=== PATIENT | female | born 1975 | race Caucasian/White ===

== ENCOUNTER 2017-07-14 00:45 | Inpatient (IN) | payer OTHER ==
[~2017-07-14] VITALS: Ht 154.9 cm; Wt 72.8 kg
[2017-07-14] MEDS ORDERED: CITA40TA12 PO (02:54)
[2017-07-14 02:58] VITALS: BP 134/87; PULSE 77; TEMP 37.1; O2SAT 99; Ht 154.9 cm; Wt 72.8 kg
[2017-07-14] MEDS ORDERED: PIPERACILL/TAZOBAC CONSULT ACTIVE PRN (04:00)
[2017-07-14] MEDS ORDERED: ONDANSETRON INJ 2 MG/ML 2 ML VIAL IV PRN (04:00)
[2017-07-14] MEDS ORDERED: MAGNESIUM HYDROXIDE SUSP 30 ML UDC PO PRN (04:00)
[2017-07-14] MEDS ORDERED: ALUMINUM/MAGNESIUM/SIMETH (MAALOX MAX) 30 ML UDC PO PRN (04:00)
[2017-07-14] MEDS ORDERED: POLYETHYLENE (MIRALAX) 17 GM PACK PO PRN (04:00)
[2017-07-14] MEDS ORDERED: ACETAMINOPHEN 325 MG TAB PO PRN (04:00)
[2017-07-14] MEDS ORDERED: ZOLPIDEM TARTRATE 5 MG TAB PO PRN (04:00)
--- NOTE | 2017-07-14 04:02 | History and Physical ---
History & Physical Date & Time of Service: July 14, 2017 at 03:51 Chief Complaint: Rt Hand Celluliltis From Cat Bite Primary Care Physician: Fabián Wheeler D.O. History of Present Illness Source: patient 41F with a PMHx of HTN, migraines and depression presents as a transfer from [facility] for a cat bite in the right and left hand. The patient's cc is primary the right hand. The cat bite happened in the afternoon on 07/13/2017 when she accidentally closed a washing machine door onto a cats tail. The cat then bit the dorsum of patient's right and left hand. The patient reports pain and swelling in the right hand and minimal pain and swelling in the left hand. Pt denies fevers but states that the swelling is getting worse. Per chart review the patient did receive a TDAP shot at [place]. ROS: No other complaints. Past Medical/Surgical History Medical Problems: (1) Cat bite of hand Family History Noncontributory Social History Smoking Status: Former Smoker Smokeless Tobacco Use: No Alcohol Use: none Drug Use: none Immunizations History of Influenza Vaccine: Unknown History of Tetanus Vaccine?: Unknown History of Pneumococcal: Unknown History of Hepatitis B Vaccine: Unknown Allergies Coded Allergies: No Known Allergies (Unverified , 07/14/17) Home Medications Scheduled Citalopram Hydrobromide (Celexa), 1 TAB PO DAILY Review of Systems Constitutional: No fever, No chills Respiratory: No cough, No sputum, No shortness of breath Cardiovascular: No chest pain Abdomen: No pain, No nausea, No vomiting, No diarrhea Musculoskeletal: No joint pain Genitourinary - Female: No dysuria Neurologic: No memory loss Integumentary: No rash Physical Exam Vital Signs Date Time Temp Pulse Resp B/P (MAP) Pulse Ox O2 Delivery O2 Flow Rate FiO2 07/14/17 03:18 Room Air 07/14/17 02:58 37.1 77 16 134/87 99 Room Air General Appearance: WD/WN, no apparent distress Head: normocephalic, atraumatic Eyes: normal inspection, PERRL Respiratory/Chest: chest non-tender, lungs clear, normal breath sounds, no respiratory distress, no accessory muscle use Cardiovascular: regular rate, rhythm, no edema, no gallop, no JVD, no murmur, normal peripheral pulses Abdomen/GI: normal bowel sounds, non tender, soft, no organomegaly, no pulsatile mass Back: normal inspection, no CVA tenderness Extremities/Musculoskelatal: + pertinent finding (The right hand looks markedly swollen. Patient has significant pain on passive and active flexion of the 3rd, 4th and 5th digit on the right hand. Pt is neurovascularly intact. 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 ) Skin: + pertinent finding (patient has 4-5 puncture huston on the dorsum of the right hand and 2-3 pucture huston on the dorsum of the left hand. There is no definite area of erythema. ) Impression Assessment and Plan 41F p/w cat bite on both hands. Right worse than Left. Cat Bite Pt received Unasyn in [place], will expand coverage to Zosyn. Consult Dr. Vaughn regarding possible involving of the tendon sheeth. Migraines Continue daily propranolol Depression Continue daily celexa. HTN Continue daily Lisinopril. Diet: NPO + IVF, in case possible debridement is needed. DVT proph: SCDs FULL CODE. Attending addendum: I have physically seen this patient, have supervised the medical residents activities, and agree with the H&P unless as otherwise noted. Assessment and Plan: Right hand cellulitis/cat bite-- Admit to nonmonitored bed. Given a single dose of Unasyn IV in the ED at [facility]. Start on Zosyn IV. Place on IV fluids N.p.o. after midnight Consult Dr. Vaughn from [facility]. Hypertension-- Continue lisinopril with hold parameters Depression-- Continue Celexa Advanced Directives Existing Advance Directive: No Existing Living Will: No Existing Power of Solar Tech: No Resuscitation Status VTE Prophylaxis Will order VTE Prophylaxis: Yes Social Service Consult None Apply Resident Involvement: Resident Care Provided Care Provided: Adult Hospital Medicine
[2017-07-14] MEDS: NSS + 20MEQ KCL 1000ML 1,000 ML IV SCH ×2 (04:44→13:17)
[2017-07-14] MEDS ORDERED: IV FLUIDS COMPLETED PRN (05:00)
[2017-07-14] MEDS: PIPERACILL/TAZOBAC IV 3.375 GM in DEXTROSE 5% 100ML 100 ML IV SCH ×3 (05:07→21:11)
[2017-07-14 07:09] VITALS: BP 113/76; PULSE 83; TEMP 36.8; O2SAT 99
[2017-07-14 07:14] LABS: BASO % 0.2 %; BASO ABS # 0.02 K/uL (0-0.2); EOS % 1.4 %; EOS ABS # 0.14 K/uL (0-0.5); HEMATOCRIT 32.9 % (37-47); HEMOGLOBIN 10.8 g/dL (12.0-16.0); IG# 0.01 K/uL (0.00-0.02); LYMPH % 21.5 %; LYMPH ABS # 2.12 K/uL (1.2-3.4); MEAN CORPUSCULAR HEMOGLOBIN 26.9 pg (25-34); MEAN CORPUSCULAR HGB CONC 32.8 g/dl (32-36); MEAN PLATELET VOLUME 9.7 fL (7.4-10.4); MONO % 7.5 %; MONO ABS # 0.74 K/uL (0.11-0.59); NEUT % 69.3 %; NEUT ABS # 6.81 K/uL (1.4-6.5); PLATELET COUNT 173 K/uL (130-400); RED CELL DISTRIBUTION WIDTH CV 15.1 % (11.5-14.5); WHITE BLOOD COUNT 9.84 K/uL (4.8-10.8)
--- NOTE | 2017-07-14 07:33 | Family Medicine Progress Note ---
Progress Note Date of Service July 14, 2017. Subjective Pt evaluation today including: conversation w/ patient, chart review Found patient resting comfortably earlier this morning. She says her pain is controlled if she does not move her right hand or wrist. She also says that the pain and swelling is extended into her wrist since overnight. She denies any other acute concerns. She is right-handed. Constitutional: No fever, No chills Respiratory: No cough, No shortness of breath Cardiovascular: No chest pain, No edema Abdomen: No pain, No nausea, No vomiting, No diarrhea Musculoskeletal: + swelling (Right fingers, hand, and wrist) Medications Current Inpatient Medications Medications (Trade) Dose Ordered Sig/Tashi Route Start Time Stop Time Status Last Admin Dose Admin Acetaminophen (Tylenol Tab) 650 mg Q4H PRN PO 07/14/17 04:00 08/13/17 03:59 Al Hydrox/Mg Hydrox/Simethicone (Maalox Max Susp) 15 ml Q4H PRN PO 07/14/17 04:00 08/13/17 03:59 Magnesium Hydroxide (Milk Of Magnesia Susp) 30 ml Q6H PRN PO 07/14/17 04:00 08/13/17 03:59 Polyethylene (Miralax Powder Packet) 17 gm DAILY PRN PO 07/14/17 04:00 08/13/17 03:59 Zolpidem Tartrate (Ambien Tab) 5 mg HSZ PRN PO 07/14/17 04:00 08/13/17 03:59 Ondansetron HCl (Zofran Inj) 4 mg Q6H PRN IV 07/14/17 04:00 08/13/17 03:59 Citalopram Hydrobromide (celeXA TAB) 40 mg QAM PO 07/14/17 09:00 08/13/17 08:59 Lisinopril (Zestril Tab) 10 mg QAM PO 07/14/17 09:00 08/13/17 08:59 Propranolol HCl (Inderal LA Cap) 80 mg QAM PO 07/14/17 09:00 08/13/17 08:59 Piperacillin Sod/ Tazobactam Sod 3.375 gm/Dextrose 115 ml @ 28.75 mls/ hr Q8H IV 07/14/17 05:00 07/24/17 04:59 07/14/17 05:07 28.75 MLS/HR Miscellaneous Information (Consult) 1 ea UD PRN N/A 07/14/17 04:00 08/13/17 03:59 Potassium Chloride/Sodium Chloride 1,000 ml @ 100 mls/hr Q10H IV 07/14/17 04:00 08/13/17 03:59 07/14/17 04:44 100 MLS/HR Miscellaneous (Iv Fluids Completed) 1 ea PRN PRN N/A 07/14/17 05:00 07/14/18 04:59 Objective Vital Signs Date Time Temp Pulse Resp B/P (MAP) Pulse Ox O2 Delivery O2 Flow Rate FiO2 07/14/17 07:09 36.8 83 16 113/76 (88) 99 Room Air 07/14/17 03:18 Room Air 07/14/17 02:58 37.1 77 16 134/87 99 Room Air Physical Exam Notes: General Appearance: Awake, alert & oriented, comfortable in general, NAD. CV: +S1S2 RRR, no murmur. Pulm: Clear to auscultation throughout. Abdomen: +BS, soft, non-tender, non-distended. Extremities: There is notable edema to the right fourth and fifth digits, lateral right hand, extending into the wrist. There is very limited range of motion in the same areas. Also notable tenderness to palpation throughout swollen areas. There is a wound consistent with a puncture on the fifth digits that has an overlying scab without present discharge. Neuro: No gross neuro deficits. Distal sensation equal and intact throughout all right digits. Laboratory Results 07/14/17 07:04 Red Blood Count 4.01, Mean Corpuscular Volume 82.0, Mean Corpuscular Hemoglobin 26.9, Mean Corpuscular Hemoglobin Concent 32.8, Mean Platelet Volume 9.7, Neutrophils (%) (Auto) 69.3, Lymphocytes (%) (Auto) 21.5, Monocytes (%) (Auto) 7.5, Eosinophils (%) (Auto) 1.4, Basophils (%) (Auto) 0.2, Neutrophils # (Auto) 6.81, Lymphocytes # (Auto) 2.12, Monocytes # (Auto) 0.74, Eosinophils # (Auto) 0.14, Basophils # (Auto) 0.02 07/14/17 07:04 Test 5/21/18 07:04 White Blood Count 9.84 K/uL (4.8-10.8) Red Blood Count 4.01 M/uL (4.2-5.4) Hemoglobin 10.8 g/dL (12.0-16.0) Hematocrit 32.9 % (37-47) Mean Corpuscular Volume 82.0 fL (80-100) Mean Corpuscular Hemoglobin 26.9 pg (25-34) Mean Corpuscular Hemoglobin Concent 32.8 g/dl (32-36) Platelet Count 173 K/uL (130-400) Mean Platelet Volume 9.7 fL (7.4-10.4) Neutrophils (%) (Auto) 69.3 % Lymphocytes (%) (Auto) 21.5 % Monocytes (%) (Auto) 7.5 % Eosinophils (%) (Auto) 1.4 % Basophils (%) (Auto) 0.2 % Neutrophils # (Auto) 6.81 K/uL (1.4-6.5) Lymphocytes # (Auto) 2.12 K/uL (1.2-3.4) Monocytes # (Auto) 0.74 K/uL (0.11-0.59) Eosinophils # (Auto) 0.14 K/uL (0-0.5) Basophils # (Auto) 0.02 K/uL (0-0.2) RDW Standard Deviation 45.0 fL (36.4-46.3) RDW Coefficient of Variation 15.1 % (11.5-14.5) Immature Granulocyte % (Auto) 0.1 % Immature Granulocyte # (Auto) 0.01 K/uL (0.00-0.02) Anion Gap 6.0 mmol/L (3-11) Est Creatinine Clear Calc Drug Dose 88.3 ml/min Estimated GFR () 111.0 Estimated GFR (Non- 95.8 BUN/Creatinine Ratio 9.5 (10-20) Calcium Level 8.1 mg/dl (8.5-10.1) Assessment and Plan 41-year-old female admitted for observation on 13 Jul 2017 for a cat bite to her right hand. PMH: Migraines, depression, hypertension Cat bite: Patient's own cat bit her in the right hand around 5 PM yesterday. She says vaccines for the cat are up-to-date. She was transferred from [place] and received a Tdap shot prior to arrival. This morning she says the swelling and tenderness has worsened. There are very superficial scratches to her left hand that do not appear infected. - Received Unasyn in [place]. Here on Zosyn. - Orthopedic hand surgery consulted. Recommendations pending. NPO in case of need for OR. Migraines: History of same. Continue daily propranolol. No acute issues. Depression: History of same. Continue daily Celexa. No acute issues. HTN: History of same. Continue daily lisinopril. No acute issues. DVT proph: SCDs CODE STATUS: Full code Disposition: On observation on med surg. Resident Tracking Resident Involvement: Resident Care Provided Care Provided: Adult Hospital Medicine (inpatient) Assessment/Plan Resident Physician Supervision Note: I was present with Dr. Zhang during the history and exam. I discussed the case with the resident and agree with the findings and plan as documented in the note. Any exceptions or clarifications are listed here. Pt reports continued, stable pain of the right hand with increased pain at the wrist. States that redness has decreased minimally. Tolerating abx well. Has morphine for pain control and can escalate therapy if needed. Awaiting input from ortho regarding potential intervention.
[2017-07-14 07:44] LABS: CALCIUM 8.1 mg/dl (8.5-10.1); CREATININE 0.78 mg/dl (0.60-1.20)
[2017-07-14] MEDS: CITALOPRAM 40 MG TAB PO SCH (08:20)
[2017-07-14] MEDS: PROPRANOLOL HCL 80 MG LA CAP PO SCH (08:20)
[2017-07-14] MEDS: LISINOPRIL 10 MG TAB PO SCH (08:20)
[2017-07-14 15:12] VITALS: BP 118/65; PULSE 74; TEMP 37.1; O2SAT 97
--- NOTE | 2017-07-14 15:31 | Orthopedic Consultation ---
Orthopedic Consultation Date of Consultation: July 14, 2017. Attending Physician: Savage Turner MD Reason for Consultation: right hand cat bite History of Present Illness cat bite right hand with infection Social History Smoking Status: Former Smoker Smokeless Tobacco Use: No Alcohol Use: none Drug Use: none Allergies Coded Allergies: No Known Allergies (Unverified , 07/14/17) Home Medications Scheduled Citalopram Hydrobromide (Celexa), 1 TAB PO DAILY Current Inpatient Medications Current Inpatient Medications Medications (Trade) Dose Ordered Sig/Tashi Route Start Time Stop Time Status Last Admin Dose Admin Acetaminophen (Tylenol Tab) 650 mg Q4H PRN PO 07/14/17 04:00 08/13/17 03:59 07/14/17 08:19 650 MG Al Hydrox/Mg Hydrox/Simethicone (Maalox Max Susp) 15 ml Q4H PRN PO 07/14/17 04:00 08/13/17 03:59 Magnesium Hydroxide (Milk Of Magnesia Susp) 30 ml Q6H PRN PO 07/14/17 04:00 08/13/17 03:59 Polyethylene (Miralax Powder Packet) 17 gm DAILY PRN PO 07/14/17 04:00 08/13/17 03:59 Zolpidem Tartrate (Ambien Tab) 5 mg HSZ PRN PO 07/14/17 04:00 08/13/17 03:59 Ondansetron HCl (Zofran Inj) 4 mg Q6H PRN IV 07/14/17 04:00 08/13/17 03:59 Citalopram Hydrobromide (celeXA TAB) 40 mg QAM PO 07/14/17 09:00 08/13/17 08:59 07/14/17 08:20 40 MG Lisinopril (Zestril Tab) 10 mg QAM PO 07/14/17 09:00 08/13/17 08:59 07/14/17 08:20 10 MG Propranolol HCl (Inderal LA Cap) 80 mg QAM PO 07/14/17 09:00 08/13/17 08:59 07/14/17 08:20 80 MG Piperacillin Sod/ Tazobactam Sod 3.375 gm/Dextrose 115 ml @ 28.75 mls/ hr Q8H IV 07/14/17 05:00 07/24/17 04:59 07/14/17 13:16 28.75 MLS/HR Miscellaneous Information (Consult) 1 ea UD PRN N/A 07/14/17 04:00 08/13/17 03:59 Miscellaneous (Iv Fluids Completed) 1 ea PRN PRN N/A 07/14/17 05:00 07/14/18 04:59 Review of Systems Musculoskeletal: + problem reported (pain right hand) Physical Exam Date Time Temp Pulse Resp B/P (MAP) Pulse Ox O2 Delivery O2 Flow Rate FiO2 07/14/17 15:12 37.1 74 16 118/65 (82) 97 Room Air 07/14/17 08:00 Room Air 07/14/17 07:09 36.8 83 16 113/76 (88) 99 Room Air 07/14/17 03:18 Room Air 07/14/17 02:58 37.1 77 16 134/87 99 Room Air Extremities/Musculoskelatal: + pertinent finding (edema right hand ,tender pipj 5th finger ,punctures all dorsal ,4th and 5th fingers ,dorsal edema not pus collection ,no drainage, 5th finger painful with rom primarily) Laboratory Results Last 24 Hours Test 07/14/17 07:04 White Blood Count 9.84 K/uL Red Blood Count 4.01 M/uL Hemoglobin 10.8 g/dL Hematocrit 32.9 % Mean Corpuscular Volume 82.0 fL Mean Corpuscular Hemoglobin 26.9 pg Mean Corpuscular Hemoglobin Concent 32.8 g/dl Platelet Count 173 K/uL Mean Platelet Volume 9.7 fL Neutrophils (%) (Auto) 69.3 % Lymphocytes (%) (Auto) 21.5 % Monocytes (%) (Auto) 7.5 % Eosinophils (%) (Auto) 1.4 % Basophils (%) (Auto) 0.2 % Neutrophils # (Auto) 6.81 K/uL Lymphocytes # (Auto) 2.12 K/uL Monocytes # (Auto) 0.74 K/uL Eosinophils # (Auto) 0.14 K/uL Basophils # (Auto) 0.02 K/uL RDW Standard Deviation 45.0 fL RDW Coefficient of Variation 15.1 % Immature Granulocyte % (Auto) 0.1 % Immature Granulocyte # (Auto) 0.01 K/uL Sodium Level 141 mmol/L Potassium Level 4.0 mmol/L Chloride Level 111 mmol/L Carbon Dioxide Level 24 mmol/L Anion Gap 6.0 mmol/L Blood Urea Nitrogen 7 mg/dl Creatinine 0.78 mg/dl Est Creatinine Clear Calc Drug Dose 88.3 ml/min Estimated GFR () 111.0 Estimated GFR (Non- 95.8 BUN/Creatinine Ratio 9.5 Random Glucose 92 mg/dl Calcium Level 8.1 mg/dl Assessment & Plan possible pipj infection right 5th finger due to cat bite ,on iv antibiotics.patient thinks she is a bit worse .may need incision and drainage of pipj right hand . keep npo at midnight for possible surgery. add pain med.
[2017-07-14] MEDS ORDERED: HYDROCODONE/ACETAMIN 5/325MG TAB PO PRN (15:45)
[2017-07-14] MEDS: MoRPHine SULFATE 2 MG/ML CARP IV PRN ×2 (15:57→21:56)
[2017-07-14] MEDS: D5W AND 1/2NSS 1,000 ML IV SCH (17:22)
[2017-07-14 23:19] VITALS: BP 106/69; PULSE 75; TEMP 37.2; O2SAT 98
[2017-07-15] VITALS (11 sets, daily range): BP systolic 90–115; BP diastolic 56–79; PULSE 64–88; TEMP 36.4–37.3; O2SAT 95–100
[2017-07-15] MEDS: PIPERACILL/TAZOBAC IV 3.375 GM in DEXTROSE 5% 100ML 100 ML IV SCH ×3 (05:24→21:10)
[2017-07-15] MEDS: D5W AND 1/2NSS 1,000 ML IV SCH ×2 (05:25→23:20)
[2017-07-15] MEDS ORDERED: PROPOFOL IV EMULSION 10 MG/ML 20 ML VIAL ONE (06:58)
[2017-07-15] MEDS ORDERED: LIDOCAINE HCL 2% 2 ML VIAL (20MG/ML) ONE (06:58)
[2017-07-15] MEDS ORDERED: MIDAZOLAM HCL 1 MG/ML 2ML VIAL ONE (06:59)
[2017-07-15] MEDS ORDERED: FENTANYL CITRATE INJ 50 MCG/1 ML 2 ML VIAL ONE (06:59)
[2017-07-15] MEDS ORDERED: PROMETHAZINE HCL INJ 12.5 MG in SODIUM CHLORIDE 0.9% 50ML 50 ML IV PRN (07:00)
[2017-07-15] MEDS ORDERED: HYDROmorphone INJ 0.5 MG/0.5 ML SYR IV PRN (07:00)
[2017-07-15] MEDS ORDERED: ONDANSETRON INJ 2 MG/ML 2 ML VIAL IV PRN (07:00)
[2017-07-15] MEDS ORDERED: EpHEDrine SULFATE INJ 50 MG/ML AMP IV PRN (07:00)
[2017-07-15] MEDS ORDERED: FENTANYL CITRATE INJ 50 MCG/1 ML 2 ML VIAL IV PRN (07:00)
[2017-07-15] MEDS ORDERED: PHENYLEPHRINE 100MCG/ML 5ML SYR IV PRN (07:00)
[2017-07-15] MEDS ORDERED: ATROPINE SULFATE 0.1 MG/ML 5ML SYR IV PRN (07:00)
[2017-07-15] MEDS ORDERED: BACITRACIN 50000 UNIT VIAL ONE (07:07)
--- NOTE | 2017-07-15 07:13 | History & Physical Bridge Note ---
H&P Re-Evaluation Bridge Note: I have examined the patient, reviewed the History & Physical and in the interval since the performance of the History & Physical I have noted the following changes of clinical significance: No changes noted
[2017-07-15] MEDS ORDERED: PHENYLEPHRINE 100MCG/ML 5ML SYR ONE (08:01)
[2017-07-15] MEDS ORDERED: ONDANSETRON INJ 2 MG/ML 2 ML VIAL ONE (08:08)
--- NOTE | 2017-07-15 08:30 | [facility] Post Operative Brief Note ---
Immediate Operative Summary Operative Date July 15, 2017. Pre-Operative Diagnosis Right small finger possible septic PIP joint Post-Operative Diagnosis Right hand and small finger abscesses Procedure(s) Performed Irrigation and debridement right hand and small finger abscesses Surgeon Matt Crane MD Material Liaison Surgeon(s) None Estimated Blood Loss 3cc Findings Consistent with Post-Op Diagnosis Fluids (cc crystalloids) 300cc Specimens Culture swabs x 2 for aerobic/anaerobic, Gram stain Drains None Anesthesia Type General Complication(s) none Disposition Accompanied Pt To Recover: no Disposition: Recovery Room / PACU Overlapping Procedure I was present for: the critical portions of procedure. I was immediately available: during the entire case
[2017-07-15] MEDS ORDERED: EpHEDrine SULFATE 50MG/5ML SYR ONE (08:43)
--- NOTE | 2017-07-15 08:51 | Family Medicine Progress Note ---
Progress Note Date of Service July 15, 2017. Subjective Pt evaluation today including: conversation w/ patient, physical exam, chart review, lab review Voiding: no voiding problems Patient is s/p I&D of right hand for abscess. She is doing well States that pain is constant but not worse than yesterday Medications seems to be helping Has appetite to eat food No new issues overnight per nursing. Additional Comments: A 10 point review of systems was negative unless stated above. Medications Current Inpatient Medications Medications (Trade) Dose Ordered Sig/Tashi Route Start Time Stop Time Status Last Admin Dose Admin Acetaminophen (Tylenol Tab) 650 mg Q4H PRN PO 07/14/17 04:00 08/13/17 03:59 07/14/17 08:19 650 MG Al Hydrox/Mg Hydrox/Simethicone (Maalox Max Susp) 15 ml Q4H PRN PO 07/14/17 04:00 08/13/17 03:59 Magnesium Hydroxide (Milk Of Magnesia Susp) 30 ml Q6H PRN PO 07/14/17 04:00 08/13/17 03:59 Polyethylene (Miralax Powder Packet) 17 gm DAILY PRN PO 07/14/17 04:00 08/13/17 03:59 Zolpidem Tartrate (Ambien Tab) 5 mg HSZ PRN PO 07/14/17 04:00 08/13/17 03:59 Ondansetron HCl (Zofran Inj) 4 mg Q6H PRN IV 07/14/17 04:00 08/13/17 03:59 Citalopram Hydrobromide (celeXA TAB) 40 mg QAM PO 07/14/17 09:00 08/13/17 08:59 07/15/17 09:41 40 MG Lisinopril (Zestril Tab) 10 mg QAM PO 07/14/17 09:00 08/13/17 08:59 07/15/17 09:42 10 MG Propranolol HCl (Inderal LA Cap) 80 mg QAM PO 07/14/17 09:00 08/13/17 08:59 07/15/17 09:41 80 MG Piperacillin Sod/ Tazobactam Sod 3.375 gm/Dextrose 115 ml @ 28.75 mls/ hr Q8H IV 07/14/17 05:00 07/24/17 04:59 07/15/17 05:24 28.75 MLS/HR Miscellaneous Information (Consult) 1 ea UD PRN N/A 07/14/17 04:00 08/13/17 03:59 Miscellaneous (Iv Fluids Completed) 1 ea PRN PRN N/A 07/14/17 05:00 07/14/18 04:59 Oxycodone HCl (Roxicodone Immediate Rel Tab) 5 mg Q4H PRN PO 07/14/17 15:45 07/28/17 15:44 07/15/17 09:44 5 MG Acetaminophen/ Hydrocodone Bitart ([place] 5/325 Tab) . Q6H PRN PO 07/14/17 15:45 07/28/17 15:44 Morphine Sulfate (MoRPHine SULFATE INJ) 2 mg Q4HWA PRN IV 07/14/17 15:45 07/28/17 15:44 07/14/17 21:56 2 MG Dextrose/Sodium Chloride 1,000 ml @ 75 mls/hr [id number] IV 07/14/17 17:00 08/13/17 16:59 07/15/17 05:25 75 MLS/HR Fentanyl Citrate (Fentanyl Inj) 25 mcg Q5M PRN IV 07/15/17 07:00 07/15/17 12:00 07/15/17 08:58 25 MCG Hydromorphone HCl (Dilaudid Inj) 0.5 mg Q5M PRN IV 07/15/17 07:00 07/15/17 12:00 Ondansetron HCl (Zofran Inj) 4 mg ONE PRN IV 07/15/17 07:00 07/15/17 12:00 Promethazine HCl 12.5 mg/Sodium Chloride 50.5 ml @ 202 mls/hr ONE PRN IV 07/15/17 07:00 Ephedrine Sulfate (EpHEDrine SULFATE INJ) 5 mg Q5M PRN IV 07/15/17 07:00 07/15/17 12:00 Atropine Sulfate (Atropine Sulfate 0.1mg/ml Inj) 0.5 mg Q1M PRN IV 07/15/17 07:00 07/15/17 12:00 Phenylephrine HCl (Jake-Synephrine 500MCG/5ML Syr) 100 mcg Q5M PRN IV 07/15/17 07:00 07/15/17 12:00 Objective Vital Signs Date Time Temp Pulse Resp B/P (MAP) Pulse Ox O2 Delivery O2 Flow Rate FiO2 07/15/17 10:30 37.0 72 12 114/77 (89) 98 Room Air 07/15/17 10:00 36.8 72 14 111/70 (84) 100 Room Air 07/15/17 10:00 Room Air 07/15/17 09:39 98 Room Air 07/15/17 09:28 36.9 68 15 114/79 (91) 98 Room Air 07/15/17 09:15 66 20 109/73 98 Room Air 07/15/17 09:05 36.7 73 16 117/81 100 Room Air 07/15/17 08:55 71 16 114/80 100 Oxymask 5 07/15/17 08:45 69 16 121/87 100 Oxymask 10 07/15/17 08:36 36.3 84 16 133/83 100 Oxymask 10 07/15/17 05:36 37.1 88 16 115/79 (91) 99 Room Air 07/14/17 23:30 Room Air 07/14/17 23:19 37.2 75 16 106/69 (81) 98 Room Air 07/14/17 15:45 Room Air 07/14/17 15:12 37.1 74 16 118/65 (82) 97 Room Air Physical Exam General Appearance: WD/WN, no apparent distress Eyes: normal inspection, EOMI ENT: hearing grossly normal, pharynx normal Neck: supple, no adenopathy, no JVD Respiratory/Chest: lungs clear, no respiratory distress Cardiovascular: regular rate, rhythm, no gallop, no murmur Abdomen: normal bowel sounds, non tender, soft Extremities: non-tender, no pedal edema, + pertinent finding (intact dressing to right hand; mild swelling, seems better than yesterday) Neurologic/Psychiatric: alert, normal mood/affect, oriented x 3 Skin: normal color, warm/dry, no rash Lymphatic: no adenopathy Assessment and Plan 41 year old female with HTN and depression. Admitted for cat bite to right hand with underlying right hand abscess. She is s/p I&D by orthopedic surgery. Our plan for her is as follows: - Cat bite to right hand with cellulitis/abscess: S/p I&D by ortho this AM. Recommendations on further care appreciated. Will continue Zosyn today hopefully transition to Augmentin tomorrow. Td updated at [facility]. Await recs on ortho follow-up. Oxycodone for pain control. - Migraine Prophylaxis: Continue home dose of Propranolol - Depression: Continue Celexa - Hypertension: Continue Lisinopril - DVT prophylaxis: SCD, TEDs, encourage early ambulation - Code Status: Level I Full Code - Disposition: Med/Surg. Anticipate discharge home when medically ready Continued [facility] stay due to: fever, multiple IV medications needed Discharge planning: home Assessment/Plan Resident Physician Supervision Note: I was present with Dr. Clark during the history and exam. I discussed the case with the resident and agree with the findings and plan as documented in the note. Any exceptions or clarifications are listed here. Pt states that her pain is well controlled on present reigmen following I&D of the hand. Redness and swelling subjectively improved. Tolerating abx well. Dressing C/D/I.
--- NOTE | 2017-07-15 09:09 | [facility] Operative Report ---
Operative Report Operative Date July 15, 2017. Pre-Operative Diagnosis Right small finger possible septic PIP joint Post-Operative Diagnosis Right small and ring finger simple dorsal abscesses Procedure(s) Performed 1. Right small finger irrigation and debridement of simple dorsal abscess over the PIP joint (08670) 2. Right ringer finger irrigation and debridement of simple dorsal abscess over the MCP joint (33289) Surgeon Matt Crane MD Health And Safety Trainer Surgeon(s) None Estimated Blood Loss 3cc Findings See below Fluids 300cc Specimens Culture swabs x 2 for aerobic/anaerobic, Gram stain Drains None Anesthesia General Complication(s) None Disposition Recovery Room / PACU Indications Ms Palomares is a 41 year old venc[place] female who was bitten by her own cat about 2 days ago in the late afternoon. She had progressive worsening of swelling and pain, especially over the right small finger dorsal PIP joint. She presented initially to the [facility] emergency room, where she was given of dose of IV antibiotics. She was then transferred to the [facility] for further antibiotics and possible surgical intervention. Despite IV antibiotics, she had persistent pain, swelling, and drainage of her wounds over the next day. Surgical intervention was recommended for possible septic PIP joint of the right small finger. Risks, benefits, and alternatives of surgery were explained in detail. She understood all this and wished to proceed. Description of Procedure Ms Palomares was identified in the Surgical Admissions area of the [facility]. Operative extremity was marked. She was then brought back to the operating room and placed supine on the operating room table. General anesthesia was induced without complication. Preoperatively she was receiving Zosyn, so no further antibiotics were administered prior to surgery. Tourniquet was placed on the right upper arm. Right arm was then prepped and draped in a standard sterile fashion using Betadine prep. Arm was then exsanguinated by gravity only , and the tourniquet was inflated. I first planned the incisions to open the puncture wounds over the dorsal aspect of the small finger PIP joint and the dorsal aspect of the ring finger MCP joint. The small finger PIP joint was obviously the most significantly involved, with easily expressible purulent drainage. I then opened each puncture wound proximally and distally to adequately debride the area. On the small finger, the puncture wound and laceration was extended across the dorsal PIP joint horizontally, and then curved along the mid lateral line ulnarly. I then bluntly dissected down to the extensor tendon. The extensor tendon was intact, with no puncture wounds into the PIP joint. There was gross purulence superficial to the extensor tendon, and the pus was collected for aerobic and anaerobic cultures. The wound bed was aggressively debrided, although no gross necrotic tissue was found. At the dorsal aspect of the ring finger MCP joint, the wound was only extended a few millimeters radially and ulnarly. There is a tiny amount of purulence, but mostly just serous drainage collecting in the dorsal hand. This was forcefully expressed. After thorough debridement, I then copiously irrigated the wounds with 3 l of sterile saline via gravity irrigation. I was then satisfied with the procedure. Skin was loosely closed with 4-0 Prolene. Sterile dressings were then applied with Xeroform, sterile Cling wrap, and Coban. Tourniquet was let down after 22 minutes of tourniquet time. The drapes were removed, the patient was awakened from general anesthesia, transferred over to the stretcher, and taken to the Post Anesthesia Care Unit in stable condition. There were no immediate complications to the procedure. I was present and scrubbed for the entire procedure. I attest to the content of the Intraoperative Record and any orders documented therein. Any exceptions are noted below.
[2017-07-15] MEDS: CITALOPRAM 40 MG TAB PO SCH (09:41)
[2017-07-15] MEDS: PROPRANOLOL HCL 80 MG LA CAP PO SCH (09:41)
[2017-07-15] MEDS: LISINOPRIL 10 MG TAB PO SCH (09:42)
[2017-07-15] MEDS: OXYCODONE HCL IR 5 MG TAB (IMMEDIATE RELEASE) PO PRN ×3 (09:44→23:21)
--- NOTE | 2017-07-15 09:59 | Anesthesiology Progress Note ---
Anesthesia Post Op Note Date & Time July 15, 2017 at 09:59 Vital Signs Pain Intensity: 6.0 Vital Signs Past 12 Hours Date Time Temp Pulse Resp B/P (MAP) Pulse Ox O2 Delivery O2 Flow Rate FiO2 07/15/17 09:39 98 Room Air 07/15/17 09:28 36.9 68 15 114/79 (91) 98 Room Air 07/15/17 09:15 66 20 109/73 98 Room Air 07/15/17 09:05 36.7 73 16 117/81 100 Room Air 07/15/17 08:55 71 16 114/80 100 Oxymask 5 07/15/17 08:45 69 16 121/87 100 Oxymask 10 07/15/17 08:36 36.3 84 16 133/83 100 Oxymask 10 07/15/17 05:36 37.1 88 16 115/79 (91) 99 Room Air 07/14/17 23:30 Room Air 07/14/17 23:19 37.2 75 16 106/69 (81) 98 Room Air Notes Mental Status: alert / awake / arousable, participated in evaluation Pt Amnestic to Procedure: Yes Nausea / Vomiting: adequately controlled Pain: adequately controlled Airway Patency, RR, SpO2: stable & adequate BP & HR: stable & adequate Hydration State: stable & adequate Anesthetic Complications: no major complications apparent
[2017-07-15] MEDS ORDERED: MoRPHine SULFATE 4 MG/ML 1 ML CARP\\VIAL IV PRN (18:00)
[2017-07-15] MEDS ORDERED: MoRPHine SULFATE 4 MG/ML 1 ML CARP\\VIAL ONE (18:05)
[2017-07-15] MEDS ORDERED: NURSING VERBAL MED ORDER ONE (20:30)
[2017-07-16 03:35] VITALS: BP 98/65; PULSE 61; TEMP 36.9; O2SAT 96
[2017-07-16] MEDS: PIPERACILL/TAZOBAC IV 3.375 GM in DEXTROSE 5% 100ML 100 ML IV SCH ×2 (05:04→12:18)
[2017-07-16 05:59] LABS: HEMATOCRIT 30.5 % (37-47); HEMOGLOBIN 9.6 g/dL (12.0-16.0); MEAN CORPUSCULAR HEMOGLOBIN 26.4 pg (25-34); MEAN CORPUSCULAR HGB CONC 31.5 g/dl (32-36); MEAN PLATELET VOLUME 10.7 fL (7.4-10.4); PLATELET COUNT 188 K/uL (130-400); RED CELL DISTRIBUTION WIDTH CV 15.1 % (11.5-14.5); RED CELL DISTRIBUTION WIDTH SD 46.3 fL (36.4-46.3); WHITE BLOOD COUNT 7.95 K/uL (4.8-10.8)
[2017-07-16 06:35] LABS: CALCIUM 7.9 mg/dl (8.5-10.1); CREATININE 0.86 mg/dl (0.60-1.20)
[2017-07-16] MEDS: OXYCODONE HCL IR 5 MG TAB (IMMEDIATE RELEASE) PO PRN ×2 (07:29→12:04)
--- NOTE | 2017-07-16 07:32 | Family Medicine Progress Note ---
Progress Note Date of Service July 16, 2017. Medications Current Inpatient Medications Medications (Trade) Dose Ordered Sig/Tashi Route Start Time Stop Time Status Last Admin Dose Admin Acetaminophen (Tylenol Tab) 650 mg Q4H PRN PO 07/14/17 04:00 08/13/17 03:59 07/14/17 08:19 650 MG Al Hydrox/Mg Hydrox/Simethicone (Maalox Max Susp) 15 ml Q4H PRN PO 07/14/17 04:00 08/13/17 03:59 Magnesium Hydroxide (Milk Of Magnesia Susp) 30 ml Q6H PRN PO 07/14/17 04:00 08/13/17 03:59 Polyethylene (Miralax Powder Packet) 17 gm DAILY PRN PO 07/14/17 04:00 08/13/17 03:59 Zolpidem Tartrate (Ambien Tab) 5 mg HSZ PRN PO 07/14/17 04:00 08/13/17 03:59 Ondansetron HCl (Zofran Inj) 4 mg Q6H PRN IV 07/14/17 04:00 08/13/17 03:59 Citalopram Hydrobromide (celeXA TAB) 40 mg QAM PO 07/14/17 09:00 08/13/17 08:59 07/15/17 09:41 40 MG Lisinopril (Zestril Tab) 10 mg QAM PO 07/14/17 09:00 08/13/17 08:59 07/15/17 09:42 10 MG Propranolol HCl (Inderal LA Cap) 80 mg QAM PO 07/14/17 09:00 08/13/17 08:59 07/15/17 09:41 80 MG Piperacillin Sod/ Tazobactam Sod 3.375 gm/Dextrose 115 ml @ 28.75 mls/ hr Q8H IV 07/14/17 05:00 07/24/17 04:59 07/16/17 05:04 28.75 MLS/HR Miscellaneous Information (Consult) 1 ea UD PRN N/A 07/14/17 04:00 08/13/17 03:59 Miscellaneous (Iv Fluids Completed) 1 ea PRN PRN N/A 07/14/17 05:00 07/14/18 04:59 Oxycodone HCl (Roxicodone Immediate Rel Tab) 5 mg Q4H PRN PO 07/14/17 15:45 07/28/17 15:44 07/16/17 07:29 5 MG Acetaminophen/ Hydrocodone Bitart ([place] 5/325 Tab) . Q6H PRN PO 07/14/17 15:45 07/28/17 15:44 Dextrose/Sodium Chloride 1,000 ml @ 75 mls/hr [id number] IV 07/14/17 17:00 08/13/17 16:59 07/15/17 23:20 75 MLS/HR Promethazine HCl 12.5 mg/Sodium Chloride 50.5 ml @ 202 mls/hr ONE PRN IV 07/15/17 07:00 Morphine Sulfate (MoRPHine SULFATE INJ) 2 mg Q4HWA PRN IV 07/15/17 18:00 07/29/17 17:59 Objective Vital Signs Date Time Temp Pulse Resp B/P (MAP) Pulse Ox O2 Delivery O2 Flow Rate FiO2 07/16/17 03:35 36.9 61 16 98/65 (76) 96 Room Air 07/15/17 23:20 Room Air 07/15/17 23:10 37.0 65 16 96/61 (73) 96 Room Air 07/15/17 19:29 37.3 69 16 91/56 (68) 95 07/15/17 15:40 Room Air 07/15/17 15:21 37.2 69 16 90/57 (68) 97 07/15/17 12:30 36.9 64 14 93/61 (72) 97 Room Air 07/15/17 11:47 96 Room Air 07/15/17 11:30 36.4 67 13 105/70 (82) 96 Room Air 07/15/17 10:30 37.0 72 12 114/77 (89) 98 Room Air 07/15/17 10:00 36.8 72 14 111/70 (84) 100 Room Air 07/15/17 10:00 Room Air 07/15/17 09:39 98 Room Air 07/15/17 09:28 36.9 68 15 114/79 (91) 98 Room Air 07/15/17 09:15 66 20 109/73 98 Room Air 07/15/17 09:05 36.7 73 16 117/81 100 Room Air 07/15/17 08:55 71 16 114/80 100 Oxymask 5 07/15/17 08:45 69 16 121/87 100 Oxymask 10 07/15/17 08:36 36.3 84 16 133/83 100 Oxymask 10 Laboratory Results 07/16/17 05:26 07/16/17 05:26 Test 07/16/17 05:26 Red Blood Count 3.63 M/uL (4.2-5.4) Mean Corpuscular Volume 84.0 fL (80-100) Mean Corpuscular Hemoglobin 26.4 pg (25-34) Mean Corpuscular Hemoglobin Concent 31.5 g/dl (32-36) RDW Standard Deviation 46.3 fL (36.4-46.3) RDW Coefficient of Variation 15.1 % (11.5-14.5) Mean Platelet Volume 10.7 fL (7.4-10.4) Anion Gap 4.0 mmol/L (3-11) Est Creatinine Clear Calc Drug Dose 80.1 ml/min Estimated GFR () 98.6 Estimated GFR (Non- 85.1 BUN/Creatinine Ratio 8.8 (10-20) Calcium Level 7.9 mg/dl (8.5-10.1) Resident Tracking Resident Involvement: Resident Care Provided Care Provided: Adult Hospital Medicine (inpatient)
[2017-07-16 08:10] VITALS: BP 104/66; PULSE 61; TEMP 36.9; O2SAT 97
[2017-07-16] MEDS: LISINOPRIL 10 MG TAB PO SCH (08:16)
[2017-07-16] MEDS: PROPRANOLOL HCL 80 MG LA CAP PO SCH (08:16)
[2017-07-16] MEDS: CITALOPRAM 40 MG TAB PO SCH (08:16)
[2017-07-16] MEDS ORDERED: AMOX875T PO ×2 (08:28→11:42)
--- NOTE | 2017-07-16 08:35 | Discharge Instructions ---
Discharge Instructions Date of Service July 16, 2017. Admission Reason for Admission: Blank Bite Of Right Hand Discharge Discharge Diagnosis / Problem: Right hand cat bite Discharge Goals Goal(s): Decrease discomfort, Learn about illness Activity Recommendations Activity Limitations: per Instructions/Follow-up section . Instructions / Follow-Up Instructions / Follow-Up You were admitted for evaluation and treatment for your cat bite to your right hand. You are being prescribed an antibiotic called Augmentin. Please continue this for a total of 10 days. We also prescribed a narcotic medication called [place] for your severe pain. Otherwise try Tylenol as needed per box instructions. Keep in mind the [place] includes Tylenol, so do not exceed the maximum Tylenol dose per day. Please follow surgery's post incision and drainage instructions for ongoing local wound care. Follow-up with them per their instructions. We also recommend that you follow-up with your primary care doctor in the next couple of days for continuity of care. Orthopedics recommended the following: - Keep dressings clean dry and intact. - May shower with a waterproof covering on the hand. - Change dressing in 72 hours from the day of surgery. Cover wounds with gauze and an hazel bandage. - Continue range of motion of the fingers regularly. - Follow up with Dr Garner in 10-14 days. Call [phone] to make an appointment. - Please call the office if you are having a fever of 101.5 or greater, worsening pain, swelling, drainage, or redness of the wounds. Return to the emergency department if you have any worsening pain, swelling, concerns for a new infection in your hand, or any other acute concerns. Current Hospital Diet Patient's current hospital diet: Regular Diet Discharge Diet Recommended Diet: Regular Diet Procedures Procedures Performed: Irrigation and debridement right hand and small finger abscesses Pending Studies Studies pending at discharge: yes List of pending studies: Potentially C diff testing (if obtained before hospital discharge) Medical Emergencies . Who to Call and When: Medical Emergencies: If at any time you feel your situation is an emergency, please call [phone] immediately. . Non-Emergent Contact Non-Emergency issues call your: Primary Care Provider, Surgeon (orthopedics) .
[2017-07-16 09:19] VITALS: O2SAT 94
--- NOTE | 2017-07-16 10:05 | Orthopedic Progress Note ---
Orthopedic Progress Note Date of Service July 16, 2017. Subjective Post OP Day: 1 Reports: feeling well Additional Notes: Pt states her hand feels better today. Continues with wrist pain but is less than yesterday. Some pain with movement of the 5th finger which we discussed would be normal at this time. No new complaints. Objective N/V intact, capillary refill less than 2 sec., A&O x3 Dressings intact. Better ROM with right wrist but still having some pain which has lessened. ROM of fingers 1-4 essentially wnl. ROM of 5th finger decreased but appears improved since I last saw her. Date Time Temp Pulse Resp B/P (MAP) Pulse Ox O2 Delivery O2 Flow Rate FiO2 07/16/17 09:19 Room Air 07/16/17 08:10 36.9 61 15 104/66 (79) 97 Room Air 07/16/17 07:15 Room Air 07/16/17 03:35 36.9 61 16 98/65 (76) 96 Room Air 07/15/17 23:20 Room Air 07/15/17 23:10 37.0 65 16 96/61 (73) 96 Room Air 07/15/17 19:29 37.3 69 16 91/56 (68) 95 07/15/17 15:40 Room Air 07/15/17 15:21 37.2 69 16 90/57 (68) 97 07/15/17 12:30 36.9 64 14 93/61 (72) 97 Room Air 07/15/17 11:47 96 Room Air 07/15/17 11:30 36.4 67 13 105/70 (82) 96 Room Air 07/15/17 10:30 37.0 72 12 114/77 (89) 98 Room Air 07/15/17 10:00 36.8 72 14 111/70 (84) 100 Room Air 07/15/17 10:00 Room Air Laboratory Results 24 Hours: Test 07/16/17 05:26 Hematocrit 30.5 % Hemoglobin 9.6 g/dL Assessment & Plan Assessment: Right small and ring finger simple dorsal abscesses s/p cat bite Plan: Continue IV antibx. Discussed case with Dr Crane. Keep dressings intact. Ok for dc to home today/tomorrow as long as she's improving. Inhouse Planning Pain Management: Morphine, Oxy IR
--- NOTE | 2017-07-16 10:15 | Consultant Recommendations ---
Grade Teacher Recommendations Date of Service July 16, 2017. Grade Teacher Recommendations Keep dressings clean dry and intact. May shower with a waterproof covering on the hand. Change dressing in 72 hours from the day of surgery. Cover wounds with gauze and an hazel bandage. Continue range of motion of the fingers regularly. Follow up with Dr Garner in 10-14 days. Call [phone] to make an appointment. Please call the office if you are having a fever of 101.5 or greater, worsening pain, swelling, drainage, or redness of the wounds.
--- NOTE | 2017-07-16 11:39 | Discharge Summary ---
Discharge Summary Date of Service July 16, 2017. Discharge Summary Admission Date: July 14, 2017 at 15:18 Discharge Disposition: Home Principal Diagnosis: Cat bite to right hand Immunizations: Have You Had Influenza Vaccine: Unknown History of Tetanus Vaccine?: Unknown History of Pneumococcal: Unknown History of Hepatitis B Vaccine: Unknown Procedures: Operative Date July 15, 2017. Pre-Operative Diagnosis: Right small finger possible septic PIP joint Post-Operative Diagnosis: Right small and ring finger simple dorsal abscesses Procedure(s) Performed 1. Right small finger irrigation and debridement of simple dorsal abscess over the PIP joint (31422) 2. Right ringer finger irrigation and debridement of simple dorsal abscess over the MCP joint (40008) Surgeon: Matt Crane MD Medication Reconciliation New Medications: Amoxicillin & Pot Clavulanate (Augmentin 875-125 mg) 1 Tab Tab 1 TAB PO BID for 10 Days, #20 TAB Hydrocodone/Acetaminophen 5MG/325MG ([place] 5MG/325MG) Tab 1 TAB PO TID PRN for Pain for 3 Days, #12 TAB 0 Refills PRN PAIN Continued Medications: Citalopram Hydrobromide (Celexa) 40 Mg Tab 1 TAB PO DAILY for 30 Days, #30 TAB 1 Refill Discharge Exam General Appearance: Awake, alert & oriented, comfortable in general, NAD. CV: +S1S2 RRR, no murmur. Pulm: Clear to auscultation throughout. Abdomen: +BS, soft, non-tender, non-distended. Right upper extremity: The right hand is bandaged with gauze and Gordon wrap. This is clean dry and intact. There is some residual local swelling to the soft tissue. Distal sensation in all right fingers is intact. Cap refill less than 2 seconds. Neuro: No gross neuro deficits. Review of Systems: Constitutional: No fever, No chills Respiratory: No cough, No shortness of breath Cardiovascular: + edema (Right hand), No chest pain Abdomen: No pain, No nausea, No vomiting, No diarrhea Musculoskeletal: + swelling, No calf pain Hospital Course HPI at time of admission on July 14, 2017 at 03:51 41F with a PMHx of HTN, migraines and depression presents as a transfer from [facility] for a cat bite in the right and left hand. The patient's cc is primary the right hand. The cat bite happened in the afternoon on 07/13/2017 when she accidentally closed a washing machine door onto a cats tail. The cat then bit the dorsum of patient's right and left hand. The patient reports pain and swelling in the right hand and minimal pain and swelling in the left hand. Pt denies fevers but states that the swelling is getting worse. Per chart review the patient did receive a TDAP shot at [facility]. Discharge summary on [id number] 41-year-old female admitted for observation on 13 Jul 2017 for a cat bite to her right hand. PMH: Migraines, depression, hypertension Cat bite: From her own cat on 13 July. Received Tdap shot at [facility] prior to transfer here. Was placed initially on Zosyn. Seen by orthopedics, status post I&D on 15 July. - Will convert to Augmentin for 10 more days of treatment post-discharge. Pain controlled by [place] and Tylenol (both as needed). - Follow-up with orthopedics and PCM. Migraines: History of same. Continue daily propranolol. No acute issues. Depression: History of same. Continue daily Celexa. No acute issues. HTN: History of same. Continue daily lisinopril. No acute issues. Total Time Spent: Greater than 30 minutes This includes examination of the patient, discharge planning, medication reconciliation, and communication with other providers. Discharge Instructions Please refer to the electronic Patient Visit Report (Discharge Instructions) for additional information. Additional Copies To Fabián Wheeler D.O. Resident Tracking Resident Involvement: Resident Care Provided Care Provided: Adult Hospital Medicine (inpatient) Assessment/Plan Resident Physician Supervision Note: I was present with Dr. Zhang during the history and exam. I discussed the case with the resident and agree with the findings and plan as documented in the note. Any exceptions or clarifications are listed here. Pt seen and examined at bedside. Gradual improvement of right hand pain and improved pain control at present. Redness and swelling continue to improve. Dressing C/D/I. Transition to PO augmentin to complete course and follow up with orthopaedics for re-evaluation.
[2017-07-16] MEDS ORDERED: HYDR-5688 PO (11:42)
[2017-07-16] MEDS: D5W AND 1/2NSS 1,000 ML IV SCH (12:05)
[2017-07-16 12:15] VITALS: BP 97/56; PULSE 64; TEMP 36.9; O2SAT 94
[2017-07-16 13:04] VITALS: BP 104/66; PULSE 61; TEMP 36.9; O2SAT 97
== END 2017-07-16 13:53 | disposition home or self-care (01) | DRG 580 ==
LOC: C.MSN 02:37 → INTOOBSV 02:37 → OBSVTOIN 15:18
PROVIDERS: ADMIT Hospitalist; ATTEND Family Medicine
PROC: 0JBJ0ZZ Excision of Right Hand Subcutaneous Tissue and Fascia, Open Approach (ICD-10-PCS; principal; 2017-07-15 07:30)
DX: L03.113 Cellulitis of right upper limb (principal); L02.511 Cutaneous abscess of right hand; I10 Essential (primary) hypertension; F32.9 Major depressive disorder, single episode, unspecified; Z79.899 Other long term (current) drug therapy; Z87.891 Personal history of nicotine dependence; W55.01XA Bitten by cat, initial encounter